=== PATIENT | male | born 1985 | race Caucasian/White ===

== ENCOUNTER 2018-09-20 07:27 | Emergency (ER) | payer BC ==
[~2018-09-20] VITALS: Ht 188 cm; Wt 145.1 kg
[2018-09-20 07:27] VITALS: BP_SYST 132
[2018-09-20] MEDS ORDERED: KETOROLAC TROMETHAMINE 30 MG VIAL IM ONE (07:45)
[2018-09-20 08:11] LABS: BASOPHILS # (AUTO) 0.1 K/uL (0.0-0.2); BASOPHILS % (AUTO) 0.7 % (0.0-2.0); EOSINOPHILS # (AUTO) 0.1 K/uL (0.0-0.4); EOSINOPHILS % (AUTO) 1.2 % (0.0-4.0); HEMATOCRIT 44.4 % (36-54); HEMOGLOBIN 14.9 g/dL (14.0-18.0); LYMPHOCYTES # (AUTO) 2.4 K/uL (1.0-5.5); LYMPHOCYTES % (AUTO) 28.5 % (20.5-51.5); MEAN CORPUSCULAR HEMOGLOBIN 28 pg (27-31); MEAN CORPUSCULAR HGB CONC 34 % (32-36); MEAN CORPUSCULAR VOLUME 84 fL (79.0-98.0); MONOCYTES # (AUTO) 0.8 K/uL (0.0-1.0); MONOCYTES % (AUTO) 9.2 % (1.7-9.3); NEUTROPHILS % (AUTO) 60.4 % (40.0-70.0); PLATELET COUNT (AUTO) 344 K/uL (130-430); RED BLOOD CELL COUNT(AUTO) 5.28 MIL/uL (4.2-6.2); RED CELL DISTRIBUTION WIDTH 13.4 % (9.0-15.0); WHITE BLOOD COUNT (AUTO) 8.4 K/uL (4.8-10.8)
[2018-09-20 08:27] LABS: CALCIUM 9.3 mg/dL (8.4-11.0); CREATININE 0.83 mg/dL (0.55-1.30); POTASSIUM 4.1 mmol/L (3.5-5.1)
[2018-09-20 08:32] LABS: ALBUMIN 3.5 g/dL (3.4-4.8); TOTAL BILIRUBIN 0.7 mg/dL (0.0-1.0)
[2018-09-20] MEDS ORDERED: BACITRACIN 1 GM OINT TP ONE (09:15)
[2018-09-20 09:23] VITALS: BP_SYST 132
== END 2018-09-20 09:22 | disposition home or self-care (01) ==
LOC: SED 07:27
DX: S51.852A Open bite of left forearm, initial encounter (principal); W54.0XXA Bitten by dog, initial encounter; Y93.89 Activity, other specified; Y92.89 Other specified places as the place of occurrence of the external cause; Y99.8 Other external cause status
CPT/HCPCS: 36415; 73090; 80053; 82550-TC; 85025; 99285; J1885

== ENCOUNTER 2020-05-19 00:53 | Emergency (ER) | payer BC, OTHER ==
[~2020-05-19] VITALS: Ht 188 cm; Wt 145.1 kg
[2020-05-19 01:04] VITALS: BP_SYST 158
--- NOTE | 2020-05-19 01:04 | NUR ---
Patient to ER bed 01 to gown for evaluation. Side rails up. Report given to HERRERA Brar
--- NOTE | 2020-05-19 01:05 | NUR ---
Pt brought in by . Pt awake, alert, oreinted x4. Pt ambulatory with limp on arrival pt states that he has had pain to L knee and inside of L knee/thigh for approx 3 days since sunday night with worsening symptoms. Pt denies trauma, swelling, redness, warmth to the effected area. Pt Denies any traumatic injury. Good Pulse, motor sensory to effected extremity. Pt denies chest pain, nausea, vomiting, diarrhea, shortness of breath, blurred vision, any other medical complaint at this time. Pt assisted to ED bed, resting comfortably in mild distress. Pt states 10/10 pain, nonradiating, eacerbated by movement. Pt states that he was covid + positive on 04/26/20, tested at [facility]. Pt states after 2 week self quarantine, he was tested - negative covid on 05/10/[address] of employment [facility]. Pt has since returned to work, currently has no respiratory or covid related symptoms.
--- NOTE | 2020-05-19 01:09 | NUR ---
ER at bedside examining patient.
--- NOTE | 2020-05-19 01:24 | NUR ---
xray at bedside
--- NOTE | 2020-05-19 01:42 | NUR ---
Bedside explaining the results of Xray.
[2020-05-19] MEDS ORDERED: IBUPROFEN 800 MG TABLET PO ONE (01:45)
[2020-05-19 02:00] VITALS: BP_SYST 158
--- NOTE | 2020-05-19 02:00 | NUR ---
Patient given written and verbal discharge instructions and verbalizes understanding. ER MD discussed with patient the results and treatment provided. Patient in stable condition. ID arm band removed. No IV Rx of Motrin 800mg given. Patient educated on pain management and to follow up with PMD. Pain Scale 6/10. Opportunity for questions provided and answered. Medication side effect fact sheet provided.
== END 2020-05-19 02:00 | disposition home or self-care (01) ==
LOC: SED 00:53
DX: M25.562 Pain in left knee (principal); I10 Essential (primary) hypertension
CPT/HCPCS: 73564; 99283